=== PATIENT | female | born 1990 | race Caucasian/White ===

== ENCOUNTER 2022-12-28 16:51 | Observation (INO) | payer BC, SELFPAY ==
[2022-12-28] VITALS (27 sets, daily range): BP systolic 120–140; BP diastolic 62–84; PULSE 108–136; TEMP 37.5–37.9; O2SAT 97–99; BMI 32.2
--- NOTE | 2022-12-28 18:00 | PC.NURSE ---
Per Kimi Ortiz, CNM continue to monitor patient for four hours from admission time. Discharge if stable.
--- NOTE | 2022-12-29 16:06 | PM.OBTRLD ---
OB - Triage/Final Diagnosis Visit Information Date of evaluation: 12/28/22 Reason for evaluation: other (fall) Comments/Additional reasons for admission: I have assessed the risk for this patient, Karrie Beard, and determined that she would benefit from observation care. Evaluation Vital signs: Vital Signs - 24 hr 12/28/22 17:15 12/28/22 17:30 12/28/22 17:45 Temperature Pulse Rate 112 H 114 H 111 H Blood Pressure 131/70 134/72 131/74 Pulse Oximetry Oxygen Delivery 12/28/22 18:00 12/28/22 18:15 12/28/22 18:30 Temperature Pulse Rate 114 H 136 H 115 H Blood Pressure 132/84 140/66 129/72 Pulse Oximetry Oxygen Delivery 12/28/22 18:45 12/28/22 19:00 12/28/22 19:15 Temperature Pulse Rate 124 H 119 H 126 H Blood Pressure 136/80 132/71 124/62 Pulse Oximetry Oxygen Delivery 12/28/22 19:30 12/28/22 19:45 12/28/22 20:00 Temperature Pulse Rate 123 H 130 H 127 H Blood Pressure 126/70 134/84 120/66 Pulse Oximetry Oxygen Delivery 12/28/22 20:15 12/28/22 20:30 12/28/22 20:43 Temperature 37.9 C H Pulse Rate 129 H 128 H Blood Pressure 133/74 120/76 Pulse Oximetry 97 Oxygen Delivery 12/28/22 20:45 12/28/22 20:48 12/28/22 20:53 Temperature Pulse Rate 129 H Blood Pressure 128/71 Pulse Oximetry 99 97 Oxygen Delivery 12/28/22 20:58 12/28/22 21:00 12/28/22 21:03 Temperature Pulse Rate 123 H Blood Pressure 125/68 Pulse Oximetry 97 97 Oxygen Delivery 12/28/22 21:08 12/28/22 21:13 12/28/22 21:16 Temperature Pulse Rate Blood Pressure Pulse Oximetry 97 97 97 Oxygen Delivery 12/28/22 21:21 12/28/22 21:26 12/28/22 21:15 Temperature 37.5 C Pulse Rate Blood Pressure Pulse Oximetry 98 97 Oxygen Delivery 12/28/22 18:24 Temperature Pulse Rate Blood Pressure Pulse Oximetry Oxygen Delivery Room Air
== END 2022-12-28 21:35 | disposition home or self-care (01) ==
PROVIDERS: Admitting Provider Obstetrics & Gynecology; Visit Provider Obstetrics & Gynecology
DX: Z04.3 Encounter for examination and observation following other accident (principal); Z3A.34 34 weeks gestation of pregnancy
CPT/HCPCS: G0378; G0379

== ENCOUNTER 2023-02-02 06:27 | Inpatient (IN) | payer BC, SELFPAY ==
[2023-02-02] VITALS (119 sets, daily range): BP systolic 74–145; BP diastolic 42–120; PULSE 75–226; RESP 18; TEMP 36.3–36.8; O2SAT 94–100; BMI 33.3
[2023-02-02 07:27] LABS: Basophils Percent Auto 0.3 % (0.2-1.2); Eosinophils Absolute Auto 0.1 K/mm3 (0-0.3); Eosinophils Percent Auto 0.8 % (0-4.4); Hematocrit 37.3 % (37.0-47.0); Hemoglobin 12.8 g/dL (12.0-15.0); Immature Granulocyte Absolute 0.04 K/mm3 (0.00-0.031); Immature Granulocyte Percent A 0.5 % (0-0.5); Lymphocytes Absolute Auto 1.58 K/mm3 (0.9-3.2); Lymphocytes Percent Auto 21.4 % (18.3-44.2); Mean Corpuscular HGB Conc 34.3 g/dl (32-36); Mean Corpuscular Hemoglobin 31.8 pg (26-34); Mean Corpuscular Volume 92.6 fl (80-100); Mean Platelet Volume 10.2 fl (7.4-10.4); Monocytes Absolute Auto 0.5 K/mm3 (0.1-0.6); Monocytes Percent Auto 6.5 % (2.6-8.5); Neutrophils Absolute Auto 5.2 K/mm3 (1.3-6.7); Neutrophils Percent Auto 70.5 % (45.5-73.1); Platelet Count Result 152 k/mm3 (150-375); Red Blood Count 4.03 M/mm3 (4.2-5.4); Red Cell Distribution Width 14.1 % (11.5-14.5); White Blood Count 7.4 K/mm3 (4.5-10.0)
[2023-02-02] MEDS: LACTATED RINGERS 1,000 ML 125 ML IV CONT (07:47)
[2023-02-02] MEDS: OXYTOCIN 30 UNITS/NS 500 ML 30 UNITS/500 ML BAG IV CONT (07:49)
--- NOTE | 2023-02-02 07:49 | PM.IMHP ---
H&P: HPI History of Present Illness Date/Time: 02/02/23 07:49 Chief Complaint: Induction of labor Review of Systems Review of Systems: All systems reviewed & are unremarkable except as noted in HPI and below Constitutional: Constitutional: Reports as per HPI and Reports no additional constitutional complaints Eyes: Eyes: Reports as per HPI ENT: Reports system reviewed and no additional complaints, except as documented Cardiovascular: Cardiovascular: Reports as per HPI Respiratory: Respiratory: Reports as per HPI Gastrointestinal: Gastrointestinal: Reports as per HPI Genitourinary: Genitourinary: Reports no additional female genitourinary complaints Musculoskeletal: Musculoskeletal: Reports no additional musculoskeletal complaints Integumentary/Breasts: Skin/Breast: Reports system reviewed and no additional complaints, except as docu Neurologic: Reports system reviewed and no additional complaints, except as documented Psychiatric: Psychiatric: Reports no additional psychiatric complaints Endocrine: Endocrine: Reports no additional endocrine complaints Hematologic/Lymphatic: Hematologic/Lymphatic: Reports no additional hematologic/lymphatic complaints Allergic/Immunologic: Allergic/Immunologic: Reports no additional allergic/immunologic complaints [facility] Family History Family History Grandparent Hypertension Family history of malignant neoplasm of uterus Diabetes mellitus Social History Social History Smoking status: Never smoker Alcohol intake: never Substance use: never Living arrangements: with family Occupation/Education: unemployed Spiritual care concerns: No Meds Home Medications and Allergies Home Medications Medication Instructions Recorded Confirmed Type aspirin 81 mg tablet,delayed 81 mg PO DAILY 12/20/22 12/20/22 History release (Adult Low Dose Aspirin) prenat.vits,tejinder,fcy-upft-[id number] 1 tablet PO HS 01/09/23 01/09/23 History Allergies Allergy/AdvReac Type Severity Reaction Status Date / Time No Known Allergies Allergy Verified 12/20/22 08:38 Vital Signs Vital Signs - 24 hr 02/02/23 07:16 02/02/23 07:31 02/02/23 07:46 Pulse Rate 97 90 91 Blood Pressure 129/82 133/80 143/87 H Exam Const: General: cooperative and healthy appearing Orientation/consciousness: oriented to person, oriented to place, oriented to time and patient oriented x3 Limitations: no limitations HENMT: Head: normal to inspection Ears: hearing grossly normal bilaterally Face/Nose/Sinus: Normal external nose present and normal facial exam Face and sinus: normal facial exam Mouth: Yes Normal oral and palatal mucosa present Teeth and gingiva: dentition normal Throat: posterior oropharynx normal Eyes: General: appearance normal, both eyes and all related structures Neck: Neck: normal visual inspection Thyroid: thyroid normal Chest: Chest palpation & inspection: normal inspection of the chest Resp: Effort & Inspection: normal respiratory effort Auscultation: clear to auscultation bilaterally Cardio: Rate: regular rate Rhythm: regular rhythm GI: Inspection: normal to inspection : General: Yes bimanual renal exam normal bilaterally Skin: General skin exam: normal color and no rashes or lesions noted Neuro: General: oriented to person, oriented to place, oriented to time and patient oriented x3 Extrem: General: normal to inspection Psych: Mental Status: mental status grossly normal H&P: Results Labs Labs: Short CBC 02/02/23 Range/Units 07:22 WBC 7.4 (4.5-10.0) K/mm3 Hgb 12.8 (12.0-15.0) g/dL Hct 37.3 (37.0-47.0) % Plt Count 152 (150-375) k/mm3
--- NOTE | 2023-02-02 07:49 | WPDOBADMIT ---
Obstetrics - Admit Note Admission Note: at 39 weeks 2 days here for elective induction of labor. record reviewed. No pertinent additions to the history and/or any subsequent changes in the physical findings that are not consistent with the expected course of the were found. Additions to the history and/or subsequent changes in the physical findings follow. None.
--- NOTE | 2023-02-02 08:41 | LDADM ---
This patient, Karrie Beard, was admitted to Labor/Delivery/Recovery 104 on 02/02/23 at 06:27. Plans for labor, pain management and were discussed with patient. Patient/family oriented to hospital policies and general routines including ID bracelet, bed and alarms, visiting hours, pain management, procedures, bathroom and other care routines, personal items, smoking policy, room service/diet and guest tray routines, infant security routines, and visiting hours. Patient/Family are encouraged to report perceived risks to care and to ask questions if they do not understand what they are told or what they should do. See OBIX for further documentation.
--- NOTE | 2023-02-02 10:43 | WPDANESEPPF ---
Anes - Initial Pre Proc Eval Procedure: Labor Epidural Date/Time: 02/02/23 10:43 Surgeon: Chetna Mahan MD Pre Op Diagnosis: Labor pain Pre Op Diagnosis: IOL Patient Data Age: 32 Gender: F Height: 1.75 m Weight: 102.3 kg Last Vital Signs Temp 36.3 C L 02/02/23 10:30 Pulse 82 02/02/23 10:31 BP 123/78 02/02/23 10:31 Allergies Allergy/AdvReac Type Severity Reaction Status Date / Time No Known Allergies Allergy Verified 12/20/22 08:38 Home Medications Medication Instructions Recorded Confirmed Type aspirin 81 mg tablet,delayed 81 mg PO DAILY 12/20/22 02/02/23 History release (Adult Low Dose Aspirin) prenat.vits,tejinder,hpz-piun-ovhpa 1 tablet PO HS 01/09/23 01/09/23 History Laboratory Tests 02/02/23 02/02/23 02/02/23 07:22 07:22 07:22 WBC 7.4 K/mm3 K/mm3 (4.5-10.0) RBC 4.03 M/mm3 L M/mm3 (4.2-5.4) Hgb 12.8 g/dL g/dL (12.0-15.0) Hct 37.3 % % (37.0-47.0) MCV 92.6 fl fl (80-100) MCH 31.8 pg pg (26-34) MCHC 34.3 g/dl g/dl (32-36) RDW 14.1 % % (11.5-14.5) Plt Count 152 k/mm3 k/mm3 (150-375) MPV 10.2 fl fl (7.4-10.4) Immature Gran % (Auto) 0.5 % % (0-0.5) Neut % (Auto) 70.5 % % (45.5-73.1) Lymph % (Auto) 21.4 % % (18.3-44.2) [place] % (Auto) 6.5 % % (2.6-8.5) Eos % (Auto) 0.8 % % (0-4.4) Baso % (Auto) 0.3 % % (0.2-1.2) Lymph # (Auto) 1.58 K/mm3 K/mm3 (0.9-3.2) [place] # (Auto) 0.5 K/mm3 K/mm3 (0.1-0.6) Eos # (Auto) 0.1 K/mm3 K/mm3 (0-0.3) Baso # (Auto) 0.0 K/mm3 K/mm3 (0.0-0.1) Abs Immat Gran (auto) 0.04 K/mm3 H K/mm3 (0.00-0.031) Absolute Neuts (auto) 5.2 K/mm3 K/mm3 (1.3-6.7) Absolute Nucleated RBC 0.0 K/mm3 K/mm3 (0.0-0.012) Nucleated RBC % 0.0 % % (0.0-0.2) RPR Pending Blood Type A Positive Antibody Screen Negative : gestational age ([place] 02/07/23) Patient hx anesthesia problems: none Family hx anesthesia problems: none Results Review: All pre-operative results and documents have been reviewed as part of the pre-operative evaluation. [facility] Family History Family History Grandparent Hypertension Family history of malignant neoplasm of uterus Diabetes mellitus Social History Social History Smoking status: Never smoker Second hand tobacco smoke exposure: No Alcohol intake: never Substance use: never Lack of Transportation: No Lack of Food: Never True Current Housing: I Have Housing Concerned About Future Housing: No Difficulty Paying Gas/Electric Bills: No Difficulty Paying for Meds: No Currently Unemployed: No Education: Bachelor's Degree Difficulty w/ Childcare or Family Care: No Living arrangements: with family Occupation/Education: unemployed Spiritual care concerns: No Anes - Eval Final PreProcedure Day of Procedure 02/02/23 10:43 Heart: regular rate and rhythm Airway: Mallampati scale class II Neurological: alert and oriented Last oral intake: >/= 8 hours ASA classification: II Emergent: no Anesthetic plan: proceed Anesthesia type and monitoring: regional epidural Results Review: All pre-operative results and documents have been reviewed as part of the pre-operative evaluation. Informed Consent: The patient's anesthetic plan and its attendant risks and benefits were discussed with the patient/family/POA. Questions were solicited and answers provided to the satisfaction of the patient/family/POA.
[2023-02-02] MEDS: LACTATED RINGERS 1,000 ML 999 ML IV CONT ×2 (10:47→11:45)
[2023-02-02 12:12] LABS: Rapid Plasma Reagin Non-Reactive (NonReactive)
--- NOTE | 2023-02-02 15:57 | P.PCNOB_ITS ---
OB - Delivery Note Procedure Delivery date: 02/02/23 Procedure: Induction method: Per Pitocin Protocol Delivery augmentation: Rupture of Membranes Delivery monitor: External FHT, External Uterine and Internal Uterine Route of delivery: Episiotomy description: None Laceration Description: None Quantitative Blood Loss (ml): 241 Anesthesia type: Epidural Narrative: Mother and baby in stable condition. Cord gasses collected and handed off to staff. [place] Baby Date of : 02/02/23 Time of : 15:41 Weeks of gestation at delivery: 39 Infant gender: Female presentation: vertex position: Left Occiput Anterior Placenta delivery description: Spontaneous Cord Vessel Description: 3 Vessels score one minute: 7 score five minutes: 9
[2023-02-02] MEDS: OXYTOCIN 30 UNITS/NS 500 ML 30 UNITS/500 ML BAG 125 UNITS IV CONT (16:20)
[2023-02-02] MEDS: WITCH HAZEL 40 PADS 1 PAD TOPICAL (19:09)
[2023-02-02] MEDS: BENZOCAINE 20% AER SPR (*SP) 56 GM CAN 1 SPRAY TOPICAL (19:09)
--- NOTE | 2023-02-02 19:32 | OBPPTRN ---
Patient transferred to post room #292 via W/C. Support person present. Oriented to unit, room, information board, rooming in, admission packet and security measures. Patient verbalizes understanding.
[2023-02-02] MEDS: POLYSACCHARIDE IRON COMPLEX 150 MG CAPSULE PO (20:00)
[2023-02-02] MEDS: MULTIVIT/MIN/PREN/FOL AC/IRON TABLET 1 TAB PO (20:00)
[2023-02-03 05:56] LABS: Hematocrit 36.5 % (37.0-47.0); Hemoglobin 11.8 g/dL (12.0-15.0)
--- NOTE | 2023-02-03 07:24 | P.PNOB_ITS ---
OB - PN: Subj Subjective Date/time seen: 02/03/23 07:24 s/p vaginal delivery day 1 OB - PN: Obj Data Labs 02/03/23 04:49 Labs: Laboratory Results - last 24 hr 02/02/23 02/02/23 02/02/23 07:22 07:22 07:22 WBC 7.4 RBC 4.03 L Hgb 12.8 Hct 37.3 MCV 92.6 MCH 31.8 MCHC 34.3 RDW 14.1 Plt Count 152 MPV 10.2 Immature Gran % (Auto) 0.5 Neut % (Auto) 70.5 Lymph % (Auto) 21.4 [place] % (Auto) 6.5 Eos % (Auto) 0.8 Baso % (Auto) 0.3 Lymph # (Auto) 1.58 [place] # (Auto) 0.5 Eos # (Auto) 0.1 Baso # (Auto) 0.0 Abs Immat Gran (auto) 0.04 H Absolute Neuts (auto) 5.2 Absolute Nucleated RBC 0.0 Nucleated RBC % 0.0 RPR Non-reactive Blood Type A Positive Antibody Screen Negative 02/03/23 04:49 WBC RBC Hgb 11.8 L Hct 36.5 L MCV MCH MCHC RDW Plt Count MPV Immature Gran % (Auto) Neut % (Auto) Lymph % (Auto) [place] % (Auto) Eos % (Auto) Baso % (Auto) Lymph # (Auto) [place] # (Auto) Eos # (Auto) Baso # (Auto) Abs Immat Gran (auto) Absolute Neuts (auto) Absolute Nucleated RBC Nucleated RBC % RPR Blood Type Antibody Screen OB - PN A/P Time Spent With Patient Time: Total time spent is greater than 50% in coordination of care (as documented) at patient's floor/unit and/or counseling patient: Review of Systems Review of Systems: All systems reviewed & are unremarkable except as noted in HPI and below Exam Const: General: cooperative, healthy appearing and comfortable Resp: Effort & Inspection: normal respiratory effort Skin: General skin exam: normal color Extrem: General: normal to inspection
--- NOTE | 2023-02-03 07:26 | P.DS_ITS ---
DS: Admitting Diagnosis Discharge Date 02/03/23 Admitting Diagnosis IOL DS: Discharge Diagnosis Discharge Diagnosis (1) Vaginal delivery: Code(s): O80 - Encounter for full-term uncomplicated delivery Status: Acute OB - DS: Summary OB Procedures : None OB Procedures Intrapartum: Spontaneous Vag Delivery OB Procedures: : None Time Spent with Patient Time attestation: Total time spent providing and/or coordinating discharge services: DS: Data Data Completed and Pending Labs on day of discharge: Labs from last 24 hours 02/03/23 02/02/23 02/02/23 04:49 07:22 07:22 WBC RBC Hgb 11.8 L Hct 36.5 L MCV MCH MCHC RDW Plt Count MPV Immature Gran % (Auto) Neut % (Auto) Lymph % (Auto) [place] % (Auto) Eos % (Auto) Baso % (Auto) Lymph # (Auto) [place] # (Auto) Eos # (Auto) Baso # (Auto) Abs Immat Gran (auto) Absolute Neuts (auto) Absolute Nucleated RBC Nucleated RBC % RPR Non-reactive Blood Type A Positive Antibody Screen Negative 02/02/23 07:22 WBC 7.4 RBC 4.03 L Hgb 12.8 Hct 37.3 MCV 92.6 MCH 31.8 MCHC 34.3 RDW 14.1 Plt Count 152 MPV 10.2 Immature Gran % (Auto) 0.5 Neut % (Auto) 70.5 Lymph % (Auto) 21.4 [place] % (Auto) 6.5 Eos % (Auto) 0.8 Baso % (Auto) 0.3 Lymph # (Auto) 1.58 [place] # (Auto) 0.5 Eos # (Auto) 0.1 Baso # (Auto) 0.0 Abs Immat Gran (auto) 0.04 H Absolute Neuts (auto) 5.2 Absolute Nucleated RBC 0.0 Nucleated RBC % 0.0 RPR Blood Type Antibody Screen Discharge Plan Discharge Attending physician on discharge: Chetna Mahan Discharging Clinician: Kimi Ortiz Patient Disposition: Home, Self-Care Activity: pelvic rest Diet: regular Patient Instructions: Antibiotic Form Stand Alone Forms: General Discharge Information Follow-up/Referrals: Urszula Jorge CNM [Primary Care Provider] - 4 Weeks Discharge Medications: New ibuprofen 600 mg Tablet 600 mg PO Q6H PRN (Reason: Cramping) Qty: 30 0RF Continued #2 Tablet 1 tablet PO HS Discontinued aspirin [Adult Low Dose Aspirin] 81 mg tablet,delayed release (DR/EC) 81 mg PO DAILY Date of admission: 02/02/23 06:27 Primary Care Provider: Urszula Jorge Admitting Provider: Chetna Mahan Attending physician on admission: Chetna Mahan Condition: Stable
[2023-02-03 07:35] VITALS: BP 127/81; PULSE 90; RESP 18; TEMP 36.7; O2SAT 96
[2023-02-03] MEDS: DOCUSATE SODIUM 100 MG CAPSULE PO (08:18)
[2023-02-03] MEDS: LANOLIN (LANSINOH) 7.5 GM CREAM 1 APPLIC TOPICAL (08:18)
[2023-02-03] MEDS: ASPIRIN 81 MG ENTERIC TABLET PO (08:18)
--- NOTE | 2023-02-03 09:44 | PC.NURSE ---
[id number] Introductions were made and Mother verbalizes she is able to independently latch with appropriate positioning/alignment. She denies any nipple discomfort and is responsively . is currently meeting outcomes for weight, output, jaundice and feeding frequencies of 8-12 times in 24 hours. Mother declines any additional assistance/education at this time. Mother is encouraged to call for assistance if her infant doesn?t latch or there is discomfort with latching. Mother voiced understanding of information shared and the mom reminded of the mom/baby guide for an additional resource.
--- NOTE | 2023-02-03 10:12 | WPDANLDPN2 ---
Anes-Prog Note L&D Date/Time: 02/03/23 10:12 Comfortable throughout: labor and delivery Neuraxial method: epidural Epidural/Spinal procedure site: clean & non-tender Neuro status: Neuro function grossly intact. Cardiovascular status: normal Respiratory status: normal Airway patency: baseline Mental status: baseline Post-Op hydration status: normal Vital Signs: Last Vital Signs Temp 36.7 C 02/03/23 07:35 Pulse 90 02/03/23 07:35 Resp 18 02/03/23 07:35 BP 127/81 02/03/23 07:35 Pulse Ox 96 02/03/23 07:35 O2 Del Method Room Air 02/03/23 08:32 Pain score (VAS): 10/25 I/O: Intake & Output 02/02/23 02/03/23 02/03/23 23:59 07:59 15:59 Intake Total 1400 Output Total 1361 Balance 39 Post-procedural complaints: none Patient feedback: Patient satisfied with anesthetic care.
[2023-02-03 13:00] VITALS: BP 132/78; PULSE 108; RESP 18; TEMP 36.3; O2SAT 97
[2023-02-04 11:01] VITALS: BP 122/82; PULSE 73; RESP 16; TEMP 37.1; O2SAT 97
== END 2023-02-03 18:49 | disposition home or self-care (01) | DRG 807 ==
LOC: ANHLDR 06:35 → ANHOB2 19:59
PROVIDERS: Admitting Provider Obstetrics & Gynecology; PCP Advanced Practice Midwife; Visit Provider Obstetrics & Gynecology
DX: O69.81X0 Labor and delivery complicated by cord around neck, without compression, not applicable or unspecified (principal); Z37.0 Single live birth; Z3A.39 39 weeks gestation of pregnancy
CPT/HCPCS: 36415; 85014; 85018; 85025; 86592; 86850; 86900; 86901; A9270; J2590; J2795; J7120

== ENCOUNTER 2023-04-27 15:29 | Outpatient (CLI) | payer BC, SELFPAY | END 2023-04-27 15:30 | disposition home or self-care (01) | LOC: ANHLAB 15:31 | PROVIDERS: PCP Advanced Practice Midwife; Visit Provider Surgery | DX: K42.0 Umbilical hernia with obstruction, without gangrene (principal) | CPT/HCPCS: 36415; 86850; 86900; 86901 ==

== ENCOUNTER 2023-05-08 01:02 | Day surgery (SDC) | payer BC, SELFPAY ==
[2023-04-26 13:07] VITALS: BMI 28.0
--- NOTE | 2023-04-26 13:12 | PC.NURSE ---
Report to the Outpatient Waiting Room, entrance under the green pavilion located off [facility], at time _0600 on date 05/08/23. Planned Procedure Time: _0730. Time changes happen often and if your time is changed the preop area will call you the afternoon before. - You and your visitor will be asked to self-screen and do not enter if you have any COVID symptoms. - A mask is optional within the hospital at this time. Patients may have clear liquids (water, carbonated beverages, clear teas, apple juice) until 3 hours prior to surgery with a maximum of 20 ounces. - No food from midnight until time of surgery - Infants may have breast milk until 4 hours before surgery, infant formula 6 hours prior to surgery. - Children will be allowed to drink immediately following surgery. If applicable, please bring a bottle or sippy cup to assist with drinking. Juice, water, soda, and popsicles are readily available. For infants on formula, please bring formula the day of surgery. Pacifiers are allowed. Take the following medications with a SIP of water the morning of surgery: _n/a DO NOT STOP ANY OF YOUR OTHER PRESCRIPTION MEDICATIONS PRIOR TO SURGERY ?EXCEPT THE FOLLOWING Medications to discontinue per physician _prenatal vitamins Date to take last dose_05/05/23___ Please no make-up, nail georgian, hairspray, perfume, deodorant, or body powder the day of surgery. No jewelry (including any body piercings) or valuables the day of surgery, leave them at home. Please take a shower or bath the night before, or the morning of, surgery with an antibacterial soap. Wear comfortable, loose fitting clothing. Children are encouraged to wear pajamas. - Jewelry must be removed prior to entering the operating room. Rings and piercings that are not removed may be cut off. - The hospital will not accept responsibility for valuables. - Please leave all valuables, including medications, at home the day of surgery. If you are going home after surgery, a licensed bus driver school must drive you home. - NO public transportation without another adult if you receive anesthesia. - We recommend that an adult stay with you for 24 hours following discharge. - We also recommend that you do not drive, make important decision, drink alcoholic beverages, or take any drugs that were not prescribed by your health care provider for at least 24 hours after your discharge time. For Pediatric surgeries, we recommend two adults accompany the child home. Follow any additional instructions given to you from your surgeon. If you or anyone in your household have experienced Covid symptoms in the past week, please notify your surgeon or the nurse liaison at the phone number below for possible testing. Telephone instructions given to Karrie Beard and asked if any additional questions and then verbalized understanding. Patient advised to call surgeon office or pre surgery nurse liaison [phone] if any additional questions.
--- NOTE | 2023-05-05 18:49 | P.PNAN_ITS ---
Anes - Eval Pre Procedure Procedure: Operation Date: 05/08/23 07:30 Proposed Procedures p Bilateral Laparoscopic Salpingectomy - Soraida Donovan MD s Robotic Assisted Umbilical Hernia Repair with Mesh - Sharmaine Chung MD Date/Time: 05/05/23 18:49 Pre Op Diagnosis: desires sterilization, incarcerated umbilical lexii Patient Data Age: 33 Gender: F Height: 1.75 m Weight: 86 kg Allergies Allergy/AdvReac Type Severity Reaction Status Date / Time No Known Allergies Allergy Verified 12/20/22 08:38 Home Medications Medication Instructions Recorded Confirmed Type prenat.vits,tejinder,pgy-mskh-sqcgy 1 tablet PO HS 01/09/23 04/26/23 History Patient hx anesthesia problems: none Family hx anesthesia problems: none Results Review: All pre-operative results and documents have been reviewed as part of the pre- operative evaluation. [facility] Past Medical History Medical History (Updated 05/05/23 @ 18:49 by Crystal Han CRNA) Overweight Family History Family History Grandparent Hypertension Family history of malignant neoplasm of uterus Diabetes mellitus Social History Social History Smoking status: Never smoker Second hand tobacco smoke exposure: No Alcohol intake: never Substance use: never Lack of Transportation: No Lack of Food: Never True Current Housing: I Have Housing Concerned About Future Housing: No Difficulty Paying Gas/Electric Bills: No Difficulty Paying for Meds: No Currently Unemployed: No Education: Bachelor's Degree Difficulty w/ Childcare or Family Care: No Living arrangements: with family Occupation/Education: unemployed Spiritual care concerns: No Exam Day of Procedure 05/05/23 18:49
[2023-05-08] VITALS (10 sets, daily range): BP systolic 114–133; BP diastolic 57–90; PULSE 56–85; RESP 12–16; TEMP 36.1–36.7; O2SAT 97–100
[2023-05-08] MEDS: LACTATED RINGERS 1,000 ML 30 ML IV CONT ×2 (06:20→10:54)
[2023-05-08] MEDS: ACETAMINOPHEN 500 MG TABLET 1000 MG PO (06:45)
[2023-05-08] MEDS: KETOROLAC 15 MG/ML VIAL (*BKC) IV PUSH (06:45)
--- NOTE | 2023-05-08 06:53 | P.PNAN_ITS ---
Anes - Eval Final PreProcedure Day of Procedure 05/08/23 06:53 Patient weight: overweight Heart: regular rate and rhythm Lungs: clear to auscultation Airway: Mallampati scale class II Neurological: alert and oriented Last oral intake: >/= 8 hours ASA classification: II Emergent: no Anesthetic plan: proceed Anesthesia type and monitoring: general ETT and standard monitoring Results Review: All pre-operative results and documents have been reviewed as part of the pre- operative evaluation. Informed Consent: The patient's anesthetic plan and its attendant risks and benefits were discussed with the patient/family/POA. Questions were solicited and answers provided to the satisfaction of the patient/family/POA.
--- NOTE | 2023-05-08 08:13 | PM.IMHP ---
H&P: HPI History of Present Illness Date/Time: 05/08/23 08:13 Chief Complaint: desires sterilization Narrative: Karrie is a 33yo who desires sterilization via LSC bilateral salpingectomy. She also has a small umbilical hernia, which will be repaired after by . She is certain she has completed her childbearing. Review of Systems Review of Systems: All systems reviewed & are unremarkable except as noted in HPI and below PMFSH Past Medical History Medical History (Updated 05/08/23 @ 08:16 by Soraida Donovan MD) Overweight Family History Family History Grandparent Hypertension Family history of malignant neoplasm of uterus Diabetes mellitus Social History Social History Smoking status: Never smoker Second hand tobacco smoke exposure: No Alcohol intake: never Substance use: never Lack of Transportation: No Lack of Food: Never True Current Housing: I Have Housing Concerned About Future Housing: No Difficulty Paying Gas/Electric Bills: No Difficulty Paying for Meds: No Currently Unemployed: No Education: Bachelor's Degree Difficulty w/ Childcare or Family Care: No Living arrangements: with family Occupation/Education: unemployed Spiritual care concerns: No Meds Home Medications and Allergies Home Medications Medication Instructions Recorded Confirmed Type prenat.vits,tejinder,kyi-aajo-caapl 1 tablet PO HS 01/09/23 05/08/23 History Allergies Allergy/AdvReac Type Severity Reaction Status Date / Time No Known Allergies Allergy Verified 05/08/23 07:42 Vital Signs Vital Signs - 24 hr 05/08/23 07:43 Temperature 98.1 F Pulse Rate 85 Respiratory Rate 16 Blood Pressure 126/90 Pulse Oximetry 99 Oxygen Delivery Room Air Exam Const: General: no acute distress Resp: Effort & Inspection: normal respiratory effort Auscultation: clear to auscultation bilaterally Cardio: Rate: regular rate Rhythm: regular rhythm GI: GI Palp: Yes Soft to palpation Extrem: General: normal to inspection Assessment and Plan Assessment and plan (1) Request for sterilization: Code(s): Z30.2 - Encounter for sterilization Status: Acute (2) Umbilical hernia: Code(s): K42.9 - Umbilical hernia without obstruction or gangrene Status: Acute Plan Consented for LSC bilateral salpingectomy for sterilization. Discussed RBA. Will proceed. Ancef 2gm to repair umbilical hernia after.
--- NOTE | 2023-05-08 08:18 | WPDHPUPDATE1 ---
History and Physical Update Update Date/Time: 05/08/23 08:18 History and Physical has been reviewed, including an updated exam of the patient. There are NO changes in the patient's condition. Risks, benefits, and alternatives have been discussed and questions answered. Patient agrees to proceed with procedure.
--- NOTE | 2023-05-08 08:23 | PM.IMHP ---
H&P: HPI History of Present Illness Date/Time: 05/08/23 08:23 Chief Complaint: hernia Narrative: Karrie is a 32 y/o female who presents to the office at the request of ANDREINA Conn for evaluation of an umbilical hernia. Patient states she first noticed this bulge about 8 years ago during her first . She has now recently delivered her 3rd child and she states the bulge was immediately visible. She states the bulge is not reducible and does cause some minor discomfort. Patient states she is planning on undergoing a tubal ligation concurrently. Review of Systems Review of Systems: All systems reviewed & are unremarkable except as noted in HPI and below PMFSH Past Medical History Medical History Overweight Family History Family History Grandparent Hypertension Family history of malignant neoplasm of uterus Diabetes mellitus Social History Social History Smoking status: Never smoker Second hand tobacco smoke exposure: No Alcohol intake: never Substance use: never Lack of Transportation: No Lack of Food: Never True Current Housing: I Have Housing Concerned About Future Housing: No Difficulty Paying Gas/Electric Bills: No Difficulty Paying for Meds: No Currently Unemployed: No Education: Bachelor's Degree Difficulty w/ Childcare or Family Care: No Living arrangements: with family Occupation/Education: unemployed Spiritual care concerns: No Meds Home Medications and Allergies Home Medications Medication Instructions Recorded Confirmed Type prenat.vits,tejinder,ayv-ghxf-owkyi 1 tablet PO HS 01/09/23 05/08/23 History Allergies Allergy/AdvReac Type Severity Reaction Status Date / Time No Known Allergies Allergy Verified 05/08/23 07:42 Vital Signs Vital Signs - 24 hr 05/08/23 07:43 Temperature 36.7 C Pulse Rate 85 Respiratory Rate 16 Blood Pressure 126/90 Pulse Oximetry 99 Oxygen Delivery Room Air Exam Const: General: cooperative, comfortable and no acute distress Resp: Auscultation: clear to auscultation bilaterally Cardio: Rate: regular rate Rhythm: regular rhythm GI: Inspection: normal to inspection and distended GI Palp: Yes abdominal tenderness, Yes Soft to palpation, Yes Tenderness to palpation present (GI), No Guarding due to palpation present (GI), No Rigid due to palpation and Yes Hernia present Assessment and Plan Assessment and plan (1) Umbilical hernia: Code(s): K42.9 - Umbilical hernia without obstruction or gangrene Status: Acute Assessment and Plan: will setup for robotic assisted repair c mesh concurrently c tubal ligation
--- NOTE | 2023-05-08 08:27 | WPDHPUPDATE1 ---
History and Physical Update Update Date/Time: 05/08/23 08:27 History and Physical has been reviewed, including an updated exam of the patient. There are NO changes in the patient's condition. Risks, benefits, and alternatives have been discussed and questions answered. Patient agrees to proceed with procedure.
[2023-05-08] MEDS: ceFAZolin 2 GM/D5W 50 ML 2 GM/50 ML BAG IVPB (08:28)
--- NOTE | 2023-05-08 09:16 | W.PM.PROC2 ---
Procedure Note - Detailed Date of Procedure 05/08/23 Pre-op Diagnosis desires sterilization, incarcerated umbilical hernia Post-op Diagnosis Same Procedure Performed Laparoscopic Bilateral Salpingectomy Surgeon Soraida Donovan MD Anesthesia General Indications undesired future fertility Findings normal uterus, tubes and ovaries Description of Procedure The patient was taken to the OR and placed in dorthal lithotomy in [facility]. She received general anesthesia. A speculum was placed and the cervix grasped with a single tooth tenaculum and an acorn uterine manipulator placed easily. A guerra catheter had previously been placed. She had received preoperative antibiotics. A 5mm subumbilical skin incision was made and using direct visualization, the trocar was inserted intraperitoneally. The abdomen was insufflated and the pelvis inspected with the above findings. Left lower quadrant and left middle quadrant incisions were made, due to following robotic hernia repair, and 8mm robotic trocars were placed under direct visualization. The right tube was grasped and elevated and using the Ligasure device, the tube was sequentially cauterized and ligated and removed through the trocar and sent to pathology. Similarly, on the left, the tube was removed using the Ligasure device. Hemostasis was noted. The trocars were left in place for 's use. The tenaculum and uterine manipulator were removed and hemostasis was noted on the cervix. EBL 10cc. Estimated Blood Loss 10 Drains No Packing No Pathology Yes Complications No immediate complications Condition Stable Disposition Same day
[2023-05-08] MEDS: BUPIVACAINE/EPINEPHRINE 0.5% 50 ML VIAL 30 ML INFILTRATE (09:38)
--- NOTE | 2023-05-08 11:06 | P.OP_ITS ---
Procedure Note - Detailed Date of Procedure 05/08/23 Pre-op Diagnosis desires sterilization, incarcerated umbilical hernia Post-op Diagnosis Same Procedure Performed Robotic assisted repair incarcerated umbilical hernia with defect measuring 3.5 cm Surgeon Sharmaine Chung MD Anesthesia General Indications 33 y/o F0 presenting c moderate sized symptomatic, incarcerated umbilical hernia Findings 3.5 cm umbilical hernia c incarcerated preperitoneal fat Description of Procedure The patient was taken the operating room placed in the supine position. Of note, the patient had a laparoscopic tubal ligation by Dr. Donovan prior to the commencement of my procedure. Once her procedure was complete, I scrubbed in to begin the hernia repair. Please see her operative report for details of the tubal ligation. A time-out was then done to verify the patient's identity as well as the procedure being performed. There was noted to be 2 8 mm ports in the left mid and left lower abdomen, as well as a 5 mm trocar in the umbilicus. I began by making a 8 mm incision in the left upper quadrant. A 5 mm trocar was placed through this incision under direct visualization. I proceeded to remove the 5 mm umbilical trocar under direct visualization. This incision was closed with 4-0 Monocryl subcuticular suture. The robot was then docked to the 3 port sites. I then went to the robotic console. I began by identifying the hernia. A moderate-sized incarcerated umbilical hernia was noted. I created a preperitoneal flap approximately 6 cm lateral to the hernia. This flap was carried widely superior and inferior to the defect. I then was able to reduce this hernia. The hernia was noted to contain a large amount of preperitoneal fat. Once reduced, I also reduced and dissected out the hernia sac. I then c arried the flap distally past the hernia. I then closed the approximately 3.5 cm defect with 0 strata fix suture. I then placed a 15 x [address] mesh into the abdominal cavity. The positional stitch was placed in the middle of the mesh and brought up centering the mesh over the defect. Once this was done, I used 2 0 V lock suture x 2 to circumferentially suture the mesh to the abdominal wall. Once the mesh was completely sutured in, I was happy with our tension-free repair. The mesh was noted to have good overlap of the defect. I then closed the flap with 2 0 V lock. At this point, the robot was undocked and all ports were removed. I then closed the 12 mm port site with an 0 Vicryl [id number] suture at the fascial level using the Zac cone under direct visualization. All port sites were then closed with 4 O Monocryl subcuticular suture. The patient tolerated the procedure well and was extubated in the operating room postoperatively. She will be transferred to the recovery room in stable condition. Implants 15x10 cm ventralight mesh Estimated Blood Loss 10 Drains No Packing No Pathology None sent Complications No immediate complications Condition Stable Disposition PACU [facility] Billing Surgery - Charge Forward: Surgery Billing
[2023-05-08] MEDS: fentaNYL CITRATE INJ (*CRX) 100 MCG/2 ML VIAL 25 MCG IV PUSH ×2 (11:17→11:19)
== END 2023-05-08 13:15 | disposition home or self-care (01) ==
PROVIDERS: Surgery; Visit Provider Obstetrics & Gynecology
PROC: (CPT 49320; principal; 2023-05-08 07:30)
PROC: (CPT 49594; 2023-05-08 07:30)
DX: K42.0 Umbilical hernia with obstruction, without gangrene (principal); Z30.2 Encounter for sterilization; N83.8 Other noninflammatory disorders of ovary, fallopian tube and broad ligament
CPT/HCPCS: 58661; 49594; S2900; 36415; 86850; 86900; 86901; 88302; A9270; C1781; J0330; J0690; J1100; J1885; J2250; J2405; J2704; J3010; J7030; J7120

== ENCOUNTER 2025-06-04 07:38 | Outpatient (CLI) | payer BC, SELFPAY ==
--- NOTE | ~2025-06-04 | MM_ITS ---
EXAMINATION: MM diagnostic patience BI w janina HISTORY: Prior right breast lump, now resolved TECHNIQUE: 3-D tomosynthesis images of the breasts were performed and synthetic 2-D images were generated. CAD analysis was submitted and interpreted. COMPARISON: None BREAST PARENCHYMAL COMPOSITION:Not Dense. There are scattered areas of fibroglandular density. FINDINGS: Parenchymal pattern of both breasts is unremarkable. No suspicious mass lesion or distortion seen. Benign lymph nodes present at the upper, outer right breast. No suspicious microcalcification. IMPRESSION: No mammographic evidence for malignancy. BI-RADS Category 2: Benign finding(s). Reviewed, dictated and finalized at location .
== END 2025-06-04 07:39 | disposition home or self-care (01) ==
LOC: MICIMG 07:39
PROVIDERS: PCP Nurse Practitioner Family; Visit Provider Nurse Practitioner
DX: N63.10 Unspecified lump in the right breast, unspecified quadrant (principal); N63.20 Unspecified lump in the left breast, unspecified quadrant
CPT/HCPCS: 77062; 77066; G0279